=== PATIENT | female | born 1955 | race Caucasian/White ===

== ENCOUNTER 2019-02-18 22:17 | Observation (INO) | payer BC, OTHER ==
[~2019-02-18] VITALS: Ht 157.5 cm; Wt 56.9 kg
[2019-02-18 22:41] VITALS: Ht 157.5 cm; Wt 56.9 kg
--- NOTE | 2019-02-18 23:12 | ERD ---
ER Documentation Chief Complaint Chief Complaint on and off cp x 1 day HPI This is a 63-year-old woman with a history of diabetes mellitus and hypertension presenting with vague sharp nonexertional nonradiating substernal chest pain intermittent for 1 day usually lasting about 20 minutes. She denies previous similar episodes. She denies shortness of breath, no cough, no fevers or chills, no vomiting or diarrhea ROS All systems reviewed and are negative except as per history of present illness. Allergies Allergies: Coded Allergies: No Known Drug Allergies (Verified Allergy, Unknown, 02/18/19) PMhx/Soc Diabetes mellitus, hypertension FmHx Family History: No diabetes Physical Exam Vitals Vital Signs Date Temp Pulse Resp B/P (MAP) Pulse Ox O2 O2 Flow FiO2 Time Delivery Rate 02/19/19 99 18 183/77 96 Room Air 00:56 (112) 02/18/19 98.6 107 20 188/83 98 22:41 (118) Physical Exam GENERAL: Well-developed, well-nourished, well-hydrated, in no apparent distress, looks nontoxic in appearance CARDIAC: Regular rate and rhythm, no murmurs rubs or gallops LUNGS: Clear bilaterally no wheezing crackles or stridor ABDOMEN: Soft nontender, no guarding, no rigidity, no rebound, no psoas sign no obturator sign. SKIN: Warm and dry to touch, no abrasions, contusions, or hematomas, no lacerations, no ecchymosis, no target lesions, and without ulcers EXTREMITIES: No clubbing cyanosis or edema, calves are bilaterally symmetrical, no Homans sign, no popliteal cord sign. Distal pulses equal and bilateral PSYCH: Normal affect without agitation or irritability Result Diagram: 02/18/190 02/18/19 232 Results 24 hrs Laboratory Tests Test 02/18/19 23:20 White Blood Count 9.2 10^3/ul Red Blood Count 5.06 10^6/ul Hemoglobin 14.2 g/dl Hematocrit 42.9 % Mean Corpuscular Volume 84.8 fl Mean Corpuscular Hemoglobin 28.1 pg Mean Corpuscular Hemoglobin Concent 33.1 g/dl Red Cell Distribution Width 11.9 % Platelet Count 316 10^3/UL Mean Platelet Volume 9.4 fl Immature Granulocytes % 0.500 % Neutrophils % 60.6 % Lymphocytes % 28.3 % Monocytes % 7.1 % Eosinophils % 2.8 % Basophils % 0.7 % Nucleated Red Blood Cells % 0.0 /100WBC Immature Granulocytes # 0.050 10^3/ul Neutrophils # 5.6 10^3/ul Lymphocytes # 2.6 10^3/ul Monocytes # 0.7 10^3/ul Eosinophils # 0.3 10^3/ul Basophils # 0.1 10^3/ul Nucleated Red Blood Cells # 0.0 10^3/ul Urine Color COLORLESS Urine Clarity CLEAR Urine pH 6.0 Urine Specific Garnett 1.003 Urine Ketones NEGATIVE mg/dL Urine Nitrite NEGATIVE mg/dL Urine Bilirubin NEGATIVE mg/dL Urine Urobilinogen NEGATIVE mg/dL Urine Leukocyte Esterase NEGATIVE Delma/ul Urine Microscopic RBC 0 /HPF Urine Microscopic WBC 0 /HPF Urine Hemoglobin 1+ mg/dL Urine Glucose 1+ mg/dL Urine Total Protein 1+ mg/dl Sodium Level 143 mmol/L Potassium Level 3.9 mmol/L Chloride Level 105 mmol/L Carbon Dioxide Level 27 mmol/L Anion Gap 11 Blood Urea Nitrogen 20 mg/dl Creatinine 1.07 mg/dl Est Glomerular Filtrat Rate mL/min 52 mL/min Glucose Level 208 mg/dl Calcium Level 10.2 mg/dl Total Bilirubin 0.7 mg/dl Direct Bilirubin 0.00 mg/dl Indirect Bilirubin 0.7 mg/dl Aspartate Amino Transf (AST/SGOT) 30 IU/L Alanine Aminotransferase (ALT/SGPT) 31 IU/L Alkaline Phosphatase 91 IU/L Troponin I < 0.012 ng/ml Total Protein 8.7 g/dl Albumin 5.0 g/dl Globulin 3.70 g/dl Albumin/Globulin Ratio 1.35 Lipase 194 U/L Current Medications Medications Dose Sig/Hiren Start Time Status Last (Trade) Ordered Route PRN Stop Time Admin Dose Reason Admin Sodium 1,000 ml @ Q1H STAT 02/18/19 DC 02/18/19 Chloride 1,000 mls/hr IV 23:19 23:30 02/19/19 00:18 Ketorolac 15 mg ONCE STAT 02/18/19 DC 02/18/19 Tromethamine IV 23:19 23:30 (Toradol) 02/18/19 23:20 Aspirin 324 mg ONCE ONCE 02/18/19 DC 02/18/19 (Aspirin) PO 23:30 23:30 02/18/19 23:31 Lorazepam 0.5 mg ONCE ONCE 02/19/19 DC 02/19/19 (Ativan) PO 00:30 00:19 02/19/19 00:31 Clonidine 0.1 mg ONCE ONCE 02/19/19 DC 02/19/19 (Catapres) PO 00:30 00:55 02/19/19 00:31 IV Flush 3 ml PER 02/19/19 (NS 3 ml) PROTOCOL IV 02:00 Ondansetron 4 mg Q6H PRN 02/19/19 HCl (Zofran PO 02:00 Tab) NAUSEA/VOMITI NG Aspirin 81 mg DAILY PO 02/19/19 (Aspirin) 09:00 650 mg Q6H PRN 02/19/19 Acetaminophen PO .PAIN 1-3 02:00 (Tylenol OR TEMP Tab) 1 tab Q6H PRN 02/19/19 Acetaminophen PO .PAIN 4-6 02:00 / Hydrocodone Bitart ([place] (5/325)) Docusate 100 mg Q12H PRN 02/19/19 Sodium PO 02:00 (Colace) .CONSTIPATION Famotidine 20 mg Q12 PO 02/19/19 (Pepcid) 02:00 Enoxaparin 30 mg DAILY SC 02/19/19 Sodium 09:00 (Lovenox) Procedures/MDM IV line was established patient was placed on child monitor rhythm strip revealed a narrow complex tachycardia at 110 bpm with upright P and T waves. Patient was afebrile EKG performed, read by me revealed a sinus tachycardia at 105 bpm, normal axis, narrow QRS complex, no concerning ST elevations or depressions noted, PVCs I administered Toradol 50 mg IV for pain and aspirin 324 mg p.o. for cardioprotective measures Patient also received 1 L normal saline IV and clonidine 0.1 mg p.o. for hypertension. Patient was anxious and I administered lorazepam 0.5 mg p.o. x1 CBC and electrolytes are normal, liver function tests are normal, troponin was negative, urinalysis was negative for infection. Patient will be admitted to telemetry setting for continued medical management cardiology consultation. Departure Diagnosis: Primary Impression: Chest pain Chest pain type: unspecified Qualified Codes: R07.9 - Chest pain, unspecified Additional Impression: Hypertension Hypertension type: essential hypertension Qualified Codes: I10 - Essential (primary) hypertension Condition: VERN Malave MD Feb 18, 2019 23:12
[2019-02-18] MEDS ORDERED: SOD CHLORIDE 0.9% 1,000 ML IV STA (23:19)
[2019-02-18] MEDS ORDERED: KETOROLAC 15 MG INJ IV STA (23:19)
[2019-02-18] MEDS ORDERED: ASPIRIN 81 MG TAB PO ONE (23:30)
[2019-02-19] MEDS ORDERED: LORAZEPAM 0.5 MG TAB PO ONE (00:30)
[2019-02-19] MEDS ORDERED: ACETAMINOPHEN 325 MG TAB PO PRN (02:00)
[2019-02-19] MEDS ORDERED: HYDROCODONE/APAP (5/325) TAB PO PRN (02:00)
[2019-02-19] MEDS ORDERED: NACL 0.9% 3 ML SYG IV SCH (02:00)
[2019-02-19] MEDS ORDERED: DOCUSATE SODIUM 100 MG CAP PO PRN (02:00)
[2019-02-19] MEDS ORDERED: ONDANSETRON 4 MG TAB PO PRN (02:00)
[2019-02-19 03:01] VITALS: PULSE 87
[2019-02-19] MEDS: FAMOTIDINE 20 MG TAB PO SCH ×2 (03:16→09:31)
[2019-02-19] MEDS ORDERED: ATOR20TA65 PO (03:58)
[2019-02-19] MEDS ORDERED: INSU300I SQ (03:58)
[2019-02-19] MEDS ORDERED: AMLO-147 PO (03:58)
[2019-02-19] MEDS ORDERED: BENA40TA56 PO (03:58)
[2019-02-19] MEDS ORDERED: GLIM4TAB PO (03:58)
[2019-02-19] MEDS ORDERED: INSU100V3 SQ (03:58)
[2019-02-19] MEDS ORDERED: METF100010 PO (03:58)
[2019-02-19 04:00] VITALS: BP 123/62; PULSE 73; RESP 20
[2019-02-19 04:38] VITALS: PULSE 75
[2019-02-19 07:40] VITALS: BP 123/59; PULSE 67; RESP 18
[2019-02-19] MEDS ORDERED: ASPIRIN 81 MG TAB PO SCH (09:00)
[2019-02-19] MEDS ORDERED: ENOXAPARIN 30 MG/0.3 ML SYG SC SCH (09:00)
--- NOTE | 2019-02-19 09:18 | PDOCDIS ---
Discharge Instructions CONDITION [id number] Patient Condition: [id number] Good HOME CARE INSTRUCTIONS: [id number] Diet Instructions: [id number] Activity Restrictions: [id number] No Restrictions FOLLOW UP/APPOINTMENTS Follow-up Plan pcp 1 week CLARIBEL MALDONADO MD Feb 19, 2019 09:18
--- NOTE | 2019-02-19 11:15 | HP ---
DATE OF ADMISSION: 02/19/2019 CHIEF COMPLAINT: Chest pain. HISTORY OF PRESENT ILLNESS: A 63-year-old female with a history of hypertension, type 2 diabetes hank litus, and hyperlipidemia, presented to Emergency Room with complaint of sharp chest pain during the day. Patient had recurrent pain about 8:00 in the evening, which lasted more than 2 hours. The alissa ent had persistent chest pain when she arrived to the Emergency Room. She denies chest pressure or t ightness. No shortness of breath. No nausea, vomiting, or diaphoresis. The pain resolved after she was admitted. The patient denies any additional symptoms. Initial evaluation was unremarkable. Serial troponins have been normal. A 12-lead EKG did not show any ST or T-wave changes. PAST MEDICAL HISTORY: 1. Hypertension. 2. Type 2 diabetes mellitus. 3. Hyperlipidemia. MEDICATIONS PRIOR TO ADMISSION: 1. Amlodipine 10 mg daily. 2. Lipitor 10 mg daily. 3. Benazepril 40 mg daily. 4. Glimepiride 4 mg b.i.d. 5. Glargine insulin 20 units at bedtime. 6. Regular insulin and metformin 1000 mg b.i.d. SOCIAL HISTORY: Patient lives at home. Her children were at the bedside. She denies tobacco or alc ohol use. PHYSICAL EXAMINATION: GENERAL: Well-developed, well-nourished female who is in no apparent distress. VITAL SIGNS: Blood pressure 123/59, pulse 67, respiration 18, temperature 98. HEENT: Extraocular muscles intact. Pupils equal, reactive to light bilaterally. Sclerae are anicte ya. Oropharynx is clear and moist. NECK: Supple, no JVD, no carotid bruits. LUNGS: Clear to auscultation bilaterally. CHEST: Nontender to palpation. CARDIAC: Regular rate and rhythm. No murmurs, rubs or gallops. ABDOMEN: Soft, nontender, nondistended, normoactive bowel sounds. EXTREMITIES: No clubbing, cyanosis, or edema. NEUROLOGICAL: Nonfocal. LABORATORY DATA: CBC within normal limits. Basic metabolic panel within normal limit except the blo od sugar of 208. Hemoglobin A1c was 6.5. TSH was 0.5. Chest x-ray showed no evidence of active car diopulmonary disease. Mild aortic atherosclerosis was noted. ASSESSMENT: 1. A 63-year-old female presenting with atypical chest pain. Her pain was sharp and lasted for more than 2 hours. There were no associated symptoms. Acute myocardial infarction has been ruled out. 2. Hypertension, well controlled. 3. Type 2 diabetes mellitus. 4. Hyperlipidemia. PLAN: 1. Place in tele observation and resume home medications. 2. Discharge planning to home. Dictated By: CLARIBEL SALDANA/MONIQUE Conf#: [id number] DID#: [id number] CC: IVETTE MORTENSEN MD;*EndCC*
[2019-02-19 12:53] VITALS: BP 128/63; PULSE 70; RESP 20
--- NOTE | 2019-02-19 13:06 | DS ---
DATE OF ADMISSION: 02/19/2019 DATE OF DISCHARGE: 02/19/2019 DISCHARGE DIAGNOSES: 1. A 63-year-old female with atypical chest pain. 2. Hypertension. 3. Type 2 diabetes mellitus. 4. Hyperlipidemia. HOSPITAL COURSE: A 63-year-old female who presented to emergency room with complaint of sharp chest pain which lasted about 2 hours. The patient denies chest tightness or pressure. There were no asso ciated symptoms of shortness of breath, nausea, vomiting, or diaphoresis. The patient did not have a ny exertional symptoms. Initial evaluation was unremarkable. Serial troponins were normal. Hemoglo bin A1c was 6.5. The patient was discharged home in a stable condition. She was asked to follow up with her PCP in 1 week. The patient was completely asymptomatic at the time of discharge. Dictated By: CLARIBEL MALDONADO MD SK/NTS Conf#: [id number] DID#: [id number] CC: IVETTE MORTENSEN MD;*EndCC*
== END 2019-02-19 13:02 | disposition home or self-care (01) ==
LOC: E/R 22:17 → TEL 02-19 01:22
PROVIDERS: ADMIT Internal Medicine; ATTEND Internal Medicine
DX: R07.89 Other chest pain (principal); E11.9 Type 2 diabetes mellitus without complications; I10 Essential (primary) hypertension; E78.5 Hyperlipidemia, unspecified; Z79.4 Long term (current) use of insulin
CPT/HCPCS: 36415; 71045; 80053; 81001; 82550; 82553; 82962; 83036; 83690; 84443; 84484; 85025; 85378; 85651; 93005; 96374; 99285; G0378; J1650; J1885; J7030

== ENCOUNTER 2019-03-12 21:55 | Emergency (ER) | payer BC, OTHER ==
[~2019-03-12] VITALS: Ht 149.9 cm; Wt 56.8 kg
[~2019-03-12 21:55] MED LIST: AMLO-147 PO; ATOR20TA65 PO; BENA40TA56 PO; GLIM4TAB PO; INSU100V3 SQ; INSU300I SQ; METF100010 PO; RANI150T35 PO; SUCR1TAB56 PO
[2019-03-12 21:58] VITALS: Ht 149.9 cm; Wt 56.8 kg
[2019-03-12] MEDS ORDERED: SOD CHLORIDE 0.9% 500 ML IV STA (22:45)
[2019-03-12] MEDS ORDERED: morphine 4 MG/ML VIAL IV STA (22:45)
[2019-03-12] MEDS ORDERED: ONDANSETRON 4 MG INJ IV STA (22:45)
[2019-03-13 01:28] VITALS: BP 132/72; PULSE 91; RESP 16
== END 2019-03-13 01:30 | disposition home or self-care (01) ==
LOC: E/R 21:55
DX: R10.13 Epigastric pain (principal); I10 Essential (primary) hypertension; E11.9 Type 2 diabetes mellitus without complications; Z79.4 Long term (current) use of insulin
CPT/HCPCS: 76705; 80053; 81003; 83690; 84484; 85025; 93005; J2270; J2405; J7040; 36415; 96374; 96375